=== PATIENT | female | born 1990 | race Hispanic/Latino ===

== ENCOUNTER 2022-06-23 07:31 | Outpatient (CLI) | payer BC | END 2022-06-23 07:32 | disposition home or self-care (01) | LOC: ULT 07:31 | PROVIDERS: ATTEND Obstetrics & Gynecology | DX: R10.13 Epigastric pain (principal) | CPT/HCPCS: 76705 ==

== ENCOUNTER 2022-08-18 07:06 | Outpatient (CLI) | payer BC | END 2022-08-18 07:07 | disposition home or self-care (01) | LOC: BICULT 07:06 | PROVIDERS: ATTEND Family Medicine | DX: R10.30 Lower abdominal pain, unspecified (principal) | CPT/HCPCS: 76856 ==